=== PATIENT | female | born 1945 | race Caucasian/White ===

== ENCOUNTER 2023-10-19 17:25 | Emergency (ER) | payer OTHER ==
[~2023-10-19] VITALS: Ht 154.9 cm; Wt 68.5 kg
[2023-10-19 17:31] VITALS: BP 149/60; PULSE 77; RESP 18; TEMP 98.1; O2SAT 98
[2023-10-19 18:00] LABS: BASOPHILS # (AUTO) 0.1 K/uL (0.00-0.22); BASOPHILS % (AUTO) 0.7 % (0.0-2.0); EOSINOPHILS # (AUTO) 0.2 K/uL (0-0.4); EOSINOPHILS % (AUTO) 1.6 % (0.0-4.0); HEMATOCRIT 37.7 % (36-48); HEMOGLOBIN 12.9 g/dL (12.0-16.0); LYMPHOCYTES # (AUTO) 4.6 K/uL (2.5-16.5); LYMPHOCYTES % (AUTO) 40.9 % (20.5-51.1); MEAN CORPUSCULAR HEMOGLOBIN 31 pg (27-31); MEAN CORPUSCULAR HGB CONC 34 g/dL (33-37); MEAN CORPUSCULAR VOLUME 91.2 fL (80-94); MONOCYTES # (AUTO) 0.9 K/uL (0.8-1.0); NEUTROPHILS # (AUTO) 5.5 K/uL (1.8-7.7); NEUTROPHILS % (AUTO) 48.8 % (42.2-75.2); PLATELET COUNT (AUTO) 312 K/uL (140-450); RED BLOOD CELL COUNT(AUTO) 4.14 MIL/uL (4.20-5.40); RED CELL DISTRIBUTION WIDTH 13.9 % (11.6-13.7); WHITE BLOOD COUNT (AUTO) 11.3 K/uL (4.8-10.8)
[2023-10-19 18:17] LABS: INR 0.97 (0.8-1.2); PROTHROMBIN TIME 10.2 secs (10.8-13.4)
[2023-10-19 18:18] LABS: ANION GAP 12.8 (8-16); CALCIUM 8.7 mg/dL (8.5-10.1); CARBON DIOXIDE 28.8 mmol/L (21-32); CHLORIDE 104 mmol/L (98-107); CREATININE 1.1 mg/dL (0.6-1.3); GLUCOSE 124 mg/dL (74-106); POTASSIUM 3.6 mmol/L (3.5-5.1); SODIUM SERUM 142 mmol/L (136-145); UREA NITROGEN, BLOOD 13 mg/dL (7-18)
[2023-10-19] MEDS: KETOROLAC 30 MG/ML VIAL IVP ONE (18:39)
[2023-10-19] MEDS ORDERED: ACET-1182 PO (18:48)
[2023-10-19] MEDS ORDERED: LID5T TP (18:48)
[2023-10-19 18:52] VITALS: BP 163/81; RESP 21; TEMP 98.1; O2SAT 97
[2023-10-19 18:57] VITALS: PULSE 76
== END 2023-10-19 19:23 | disposition home or self-care (01) ==
LOC: MED 17:25
DX: R07.9 Chest pain, unspecified (principal); I11.9 Hypertensive heart disease without heart failure; Z79.899 Other long term (current) drug therapy
CPT/HCPCS: 36415; 71045; 80048; 83880; 84484; 85025; 85610; 85730; 93005; 96372; 99285; J1885

== ENCOUNTER 2024-06-06 14:18 | Inpatient (IN) | payer OTHER ==
[~2024-06-06] VITALS: Ht 154.9 cm; Wt 67.6 kg
[~2024-06-06 14:18] MED LIST: ACET-1182 PO; LID5T TP
[2024-06-06 14:21] VITALS: BP 79/60; PULSE 81; RESP 16; TEMP 97.7; O2SAT 95
[2024-06-06] MEDS ORDERED: cefTRIAXone 1,000 MG VIAL ONE (14:40)
[2024-06-06] MEDS: NACL 0.9% 1,000 ML IV SCH ×2 (15:06→18:27)
[2024-06-06] MEDS: cefTRIAXone 1,000 MG in DEXT 5% MINI-BAG PLUS 50 ML IV ONE (15:09)
[2024-06-06 15:12] LABS: BASOPHILS # (AUTO) 0.1 K/uL (0.00-0.22); BASOPHILS % (AUTO) 0.7 % (0.0-2.0); EOSINOPHILS # (AUTO) 0.1 K/uL (0-0.4); EOSINOPHILS % (AUTO) 0.9 % (0.0-4.0); HEMOGLOBIN 13.5 g/dL (12.0-16.0); LYMPHOCYTES # (AUTO) 3.8 K/uL (2.5-16.5); LYMPHOCYTES % (AUTO) 33.5 % (20.5-51.1); MEAN CORPUSCULAR HEMOGLOBIN 30 pg (27-31); MEAN CORPUSCULAR HGB CONC 33 g/dL (33-37); MEAN CORPUSCULAR VOLUME 91.8 fL (80-94); MONOCYTES # (AUTO) 0.9 K/uL (0.8-1.0); NEUTROPHILS # (AUTO) 6.4 K/uL (1.8-7.7); NEUTROPHILS % (AUTO) 56.9 % (42.2-75.2); PLATELET COUNT (AUTO) 301 K/uL (140-450); RED BLOOD CELL COUNT(AUTO) 4.47 MIL/uL (4.20-5.40); RED CELL DISTRIBUTION WIDTH 13.9 % (11.6-13.7); WHITE BLOOD COUNT (AUTO) 11.3 K/uL (4.8-10.8)
[2024-06-06 15:23] LABS: ANION GAP 15.8 (8-16); CALCIUM 9.2 mg/dL (8.5-10.1); CARBON DIOXIDE 25.3 mmol/L (21-32); CHLORIDE 102 mmol/L (98-107); CREATININE 1.3 mg/dL (0.6-1.3); GLUCOSE 106 mg/dL (74-106); POTASSIUM 4.1 mmol/L (3.5-5.1); SODIUM SERUM 139 mmol/L (136-145); UREA NITROGEN, BLOOD 29 mg/dL (7-18)
[2024-06-06 15:32] LABS: ALANINE AMINOTRANSFERASE 18 U/L (12-78); ALBUMIN 3.6 g/dL (3.4-5.0); ALKALINE PHOSPHATASE 96 U/L (50-136); ASPARTATE AMINOTRANSFERASE 17 U/L (15-37); BILIRUBIN,DIRECT 0.1 mg/dL (0.0-0.3); TOTAL BILIRUBIN 0.2 mg/dL (0.0-1.0)
[2024-06-06 16:23] LABS: APPEARANCE,URINE CLEAR (CLEAR); BILIRUBIN,URINE NEGATIVE (NEGATIVE); BLOOD, URINE NEGATIVE (NEGATIVE); COLOR,URINE YELLOW (YELLOW); LEUKOCYTE ESTERASE ,URINE 2+ (NEGATIVE); NITRITE, URINE NEGATIVE (NEGATIVE); PROTEIN,URINE NEGATIVE (NEGATIVE); UGLUCOSE NEGATIVE (NEGATIVE); UROBILINOGEN,URINE 0.2 EU/dL (0.2 - 1)
[2024-06-06 16:27] LABS: BACTERIA,URINE 2+ /HPF (None Seen); RBC,URINE 0-5 /HPF (0-5)
[2024-06-06 16:28] LABS: MUCUS,URINE 1+ /LPF (None Seen); SQUAMOUS EPITHELIAL CELL,UR 4-10 (MOD) /LPF (0-3 (FEW))
[2024-06-06] MEDS ORDERED: HYDR-5071 PO (17:43)
[2024-06-06] MEDS ORDERED: VALS40TA PO (17:43)
[2024-06-06] MEDS ORDERED: SIMV-372 PO (17:43)
[2024-06-06] MEDS ORDERED: MECL-303 PO (17:43)
[2024-06-06] MEDS ORDERED: AMLO2.5T PO (17:43)
[2024-06-06] MEDS ORDERED: APIX5TAB PO (17:43)
[2024-06-06] MEDS ORDERED: HYDR-1102 PO (17:43)
[2024-06-06] MEDS ORDERED: BECL10.6 IH (17:43)
[2024-06-06] MEDS ORDERED: METO25TE2 PO (17:43)
[2024-06-06] MEDS ORDERED: OMEP20EC11 PO (17:43)
[2024-06-06] MEDS ORDERED: MORPHINE SULFATE 4 MG/ML SYR IVP PRN (17:50)
[2024-06-06] MEDS ORDERED: KCL 20 MEQ IN 100 mL PREMIX 200 ML IV PRN (17:50)
[2024-06-06] MEDS ORDERED: MAG SULF 2000 MG/WATER PREMIX 50 ML IV PRN (17:50)
[2024-06-06] MEDS ORDERED: POTASSIUM CHLORIDE 10 MEQ TABER PO PRN (17:50)
[2024-06-06] MEDS ORDERED: HYDROcodone/APAP 5/325 MG 1 TAB TAB PO PRN (17:50)
[2024-06-06] MEDS ORDERED: ONDANSETRON 4 MG/2 ML VIAL IVP PRN (17:50)
[2024-06-06 21:00] VITALS: BP 144/69; PULSE 63; RESP 18; TEMP 97.7; O2SAT 93; O2SAT 95
[2024-06-07 04:00] VITALS: BP 147/65; PULSE 60; RESP 18; TEMP 97; O2SAT 95
[2024-06-07 06:43] LABS: BASOPHILS # (AUTO) 0.1 K/uL (0.00-0.22); BASOPHILS % (AUTO) 0.8 % (0.0-2.0); EOSINOPHILS # (AUTO) 0.2 K/uL (0-0.4); EOSINOPHILS % (AUTO) 1.9 % (0.0-4.0); HEMATOCRIT 36.9 % (36-48); HEMOGLOBIN 12.2 g/dL (12.0-16.0); LYMPHOCYTES # (AUTO) 4.5 K/uL (2.5-16.5); LYMPHOCYTES % (AUTO) 41.4 % (20.5-51.1); MEAN CORPUSCULAR HEMOGLOBIN 31 pg (27-31); MEAN CORPUSCULAR HGB CONC 33 g/dL (33-37); MEAN CORPUSCULAR VOLUME 92.3 fL (80-94); MONOCYTES # (AUTO) 1.2 K/uL (0.8-1.0); MONOCYTES % (AUTO) 10.9 % (1.7-9.3); NEUTROPHILS # (AUTO) 4.9 K/uL (1.8-7.7); PLATELET COUNT (AUTO) 276 K/uL (140-450); RED CELL DISTRIBUTION WIDTH 13.9 % (11.6-13.7); WHITE BLOOD COUNT (AUTO) 10.9 K/uL (4.8-10.8)
[2024-06-07 07:11] LABS: ALANINE AMINOTRANSFERASE 17 U/L (12-78); ALBUMIN 2.9 g/dL (3.4-5.0); ALKALINE PHOSPHATASE 84 U/L (50-136); ANION GAP 13.5 (8-16); ASPARTATE AMINOTRANSFERASE 20 U/L (15-37); CALCIUM 8.6 mg/dL (8.5-10.1); CARBON DIOXIDE 25.4 mmol/L (21-32); CHLORIDE 108 mmol/L (98-107); CREATININE 1.2 mg/dL (0.6-1.3); GLUCOSE 99 mg/dL (74-106); POTASSIUM 3.9 mmol/L (3.5-5.1); SODIUM SERUM 143 mmol/L (136-145); TOTAL BILIRUBIN 0.2 mg/dL (0.0-1.0); TOTAL PROTEIN, SERUM 6.8 g/dL (6.4-8.2); UREA NITROGEN, BLOOD 22 mg/dL (7-18)
[2024-06-07 08:00] VITALS: BP 111/63; PULSE 61; RESP 18; TEMP 97.6; O2SAT 98
[2024-06-07] MEDS: DOCUSATE SODIUM 100 MG GELCAP PO SCH (08:24)
[2024-06-07 12:00] VITALS: BP 133/58; PULSE 64; RESP 18; TEMP 98.5; O2SAT 96
[2024-06-07 16:00] VITALS: BP 133/58; PULSE 64; RESP 18; TEMP 98.5; O2SAT 96
[2024-06-07 20:00] VITALS: BP 133/64; PULSE 67; RESP 18; RESP 21; TEMP 98.3; O2SAT 93; O2SAT 98
[2024-06-07] MEDS: ACETAMINOPHEN 325 MG TAB PO PRN (21:09)
[2024-06-07] MEDS: MEDS-TO-BEDS MC SCH (21:11)
[2024-06-08 04:00] VITALS: BP 148/62; PULSE 71; RESP 20; TEMP 98.2; O2SAT 95
[2024-06-08 07:02] LABS: BASOPHILS # (AUTO) 0.1 K/uL (0.00-0.22); BASOPHILS % (AUTO) 1.3 % (0.0-2.0); EOSINOPHILS # (AUTO) 0.2 K/uL (0-0.4); EOSINOPHILS % (AUTO) 2.2 % (0.0-4.0); HEMATOCRIT 36.2 % (36-48); HEMOGLOBIN 12.2 g/dL (12.0-16.0); MEAN CORPUSCULAR HEMOGLOBIN 31 pg (27-31); MEAN CORPUSCULAR HGB CONC 34 g/dL (33-37); MEAN CORPUSCULAR VOLUME 92.9 fL (80-94); MONOCYTES # (AUTO) 0.8 K/uL (0.8-1.0); MONOCYTES % (AUTO) 8.6 % (1.7-9.3); NEUTROPHILS # (AUTO) 3.3 K/uL (1.8-7.7); NEUTROPHILS % (AUTO) 34.9 % (42.2-75.2); PLATELET COUNT (AUTO) 275 K/uL (140-450); RED CELL DISTRIBUTION WIDTH 13.9 % (11.6-13.7); WHITE BLOOD COUNT (AUTO) 9.4 K/uL (4.8-10.8)
[2024-06-08 07:33] LABS: ALANINE AMINOTRANSFERASE 19 U/L (12-78); ALKALINE PHOSPHATASE 77 U/L (50-136); ANION GAP 12.1 (8-16); ASPARTATE AMINOTRANSFERASE 18 U/L (15-37); CALCIUM 8.5 mg/dL (8.5-10.1); CARBON DIOXIDE 25.4 mmol/L (21-32); CHLORIDE 106 mmol/L (98-107); GLUCOSE 87 mg/dL (74-106); MAGNESIUM 1.7 mg/dL (1.8-2.4); POTASSIUM 3.5 mmol/L (3.5-5.1); SODIUM SERUM 140 mmol/L (136-145); TOTAL BILIRUBIN 0.2 mg/dL (0.0-1.0); TOTAL PROTEIN, SERUM 6.9 g/dL (6.4-8.2); UREA NITROGEN, BLOOD 17 mg/dL (7-18)
[2024-06-08 08:00] VITALS: PULSE 62; RESP 17; O2SAT 94
[2024-06-08] MEDS ORDERED: CEPH-588 PO (12:02)
[2024-06-08] MEDS: MAGNESIUM OXIDE 400 MG TAB PO PRN (12:05)
[2024-06-08 15:30] VITALS: BP 140/60; PULSE 65; RESP 18; TEMP 97.5
== END 2024-06-08 17:16 | disposition home or self-care (01) | DRG 690 ==
LOC: MED 14:18 → MMU 17:46 → MTU 18:32
PROVIDERS: ADMIT Hospitalist; ATTEND Hospitalist
DX: N30.01 Acute cystitis with hematuria (principal); J45.909 Unspecified asthma, uncomplicated; E86.0 Dehydration; I10 Essential (primary) hypertension; D72.829 Elevated white blood cell count, unspecified; Z95.0 Presence of cardiac pacemaker; Z79.899 Other long term (current) drug therapy
CPT/HCPCS: 36415; 71045; 80048; 80053; 80076; 81001; 83605; 83735; 83880; 84484; 85025; 87040; 87081; 87086; 93005; 96365; 97112; 97116; 97163-GP; 97530; 99285; J0696; J7060